=== PATIENT | male | born 1970 | race Caucasian/White ===

== ENCOUNTER 2020-02-13 08:48 | Day surgery (SDC) | payer BC, SELFPAY ==
[2020-02-13] VITALS (7 sets, daily range): BP systolic 95–107; BP diastolic 62–70; PULSE 57–68; RESP 16; TEMP 36.2–36.6; O2SAT 97–100; BMI 21.8
--- NOTE | 2020-02-13 08:56 | PCM.HP.BLA ---
Problem List (1) Temporal arteritis Status: Acute History and Physical Date of Admission: 02/13/20 Intake Visit Reasons: TEMPORAL ARTERY Chief Complaint: discuss temporal artery biopsy Rehabilitation Tech Required: No Is patient in pain?: Yes Allergies No Known Allergies Allergy (Verified 02/11/20 12:48) Medications prednisone 20 mg tablet PO 02/11/20 [History Confirmed 02/11/20] [facility] Medical History (Updated 02/11/20 @ 13:[address] Prasanna Shankar MD) Temporal arteritis (Acute) Anxiety and depression (Acute) Fatigue (Acute) Fever of unknown origin (Acute) Hepatomegaly (Acute) Splenomegaly (Acute) HPI HPI HPI: NAYELY DIAZ, is a 49 M who presents to the office today for a right temporal artery biopsy. The patient has suspected temporal arteritis. He is being referred by Dr Chowdary and a written copy of my surgical consult recommendations will be returned to him. Patient's been suffering from a complexity of issues including weight loss right upper quadrant flank pain fever. Part of his evaluation included a gallbladder ultrasound showing hepatomegaly with a 2.6 mm lesion the right hepatic lobe probably hemangioma contracted gallbladder. Hepatitis B and hepatitis A evaluation was negative. White count normal at 6.9 with a hemo-14.1 medical 41.9 platelet count 261,000. Liver function tests only notable for total bilirubin of 1 alkaline phosphatase of 140 ALT 107 AST of 60. CEA level was 4. It is of note that his C-reactive protein is 227.6. His rheumatoid factor is 13. Sed rate was 82 Patient notes intermittent throbbing severe right slightly greater than left temporal headache. He denies vision changes HPI HPI HPI: NAYELY DIAZ, is a 49 M who presents to the office today for ROS General General: Yes weight change and fatigue; no appetite, colon cancer, breast cancer or weakness HEENT HEENT: No difficulty swallowing, eye injury, eye surgery, swollen glands or hoarseness Endo Endocrine: No thyroid disease, diabetes mellitus, thyroid cancer, Hair loss, heat intolerance or cold intolerance Musc Musculoskeletal: No back problems, arthritis, rheumatoid arthritis, gout or joint pain Cardio Cardiovascular: No murmur, pacemaker, heart disease, atrial fibrillation, high blood pressure, heart attack, heart stent, palpitations, shortness of breat with exertion or chest pain Psych Psychiatric: Yes depression and anxiety; no hearing voices Resp Respiratory: No shortness of breath, No sleep apnea, No cough, No COPD, No asthma, No emphysema, No wheezing Gastro Gastrointestinal: Yes abdominal pain, Yes nausea or vomiting, Yes diarrhea, No constipation, No blood in stool, No acid reflux, No hemorrhoids, No ulcers, No gallbladder problem, No black,tarry stools Hayden Hematologic: No blood thinners, No blood disorders, No bleeding, No anemia, No blood clots Neuro Neurologic: No weakness Exam Const General: cooperative, other (Hoarse voice, evidence of weight loss) Orientation: alert, awake HENMT Other: Diminished pulses bilateral temporal arteries with slight tenderness to palpation bilaterally. No erythema or induration Eyes General: appearance normal, both eyes and all related structures Chest Chest palpation & inspection: normal inspection of the chest Resp Effort & Inspection: normal respiratory effort Auscultation: clear to auscultation bilaterally Cardio Rate: regular rate Rhythm: regular rhythm Heart Sounds: no murmurs Neuro Cognition: normal cognition Extrem General: no calf tenderness Psych Affect: normal affect Assessment & Plan Problems 1. Temporal arteritis M31.6 Plan Patient referred for possible temporal arteritis. He has been started appropriately on steroid treatment. I propose for him a right temporal artery biopsy and with his present I described the technique, benefit, risk and alternatives. Anticipate performing this with monitored anesthesia care and local anesthetic. As noted he is already been started on treatment. We will schedule and expedite his care. I appreciate the opportunity of assisting with surgical management Copy: Dr. Jeremy Shankar M.D., F.A.C.S. Coding Level of Care Code 17576 Diagnoses Temporal arteritis M31.6 I have re-examined the patient. There are no clinical changes since date of exam. Procedure Criteria Procedure Type: Elective COVID Risk Discussion: The surgeon/proceduralist and patient have discussed in detail the risk of exposure to and/or potential harm posed by the COVID-19 virus with having a surgery/procedure at this time versus the risk of delaying the surgery/procedure. It is not possible to know either the risk of delaying the surgery or procedure or chance of getting an infection with perfect accuracy, but a joint decision was made between the patient and the surgeon/proceduralist to proceed at this time with the scheduled surgery/procedure as indicated on the consent form.
[2020-02-13 09:41] LABS: Bedside Glucose 88 mg/dL (70-110)
[2020-02-13] MEDS: Lactated Ringers 1,000 ML 100 ML IV (09:43)
--- NOTE | 2020-02-13 10:48 | DCINST_ITS ---
Discharge Diet: Light diet - advance as tolerated - if you have questions about your diet instructions, please talk to you doctor. Discharge Activity: May Not Drive - for 1 day May shower in (days): 1 Lifting Restrictions: 10 pounds Call your doctor if your incision/area has: Continuous Slow Oozing, Sudden Increased Bleeding, Increased Pain/ Swelling, Increased Redness, Foul Smelling Discharge Call your doctor if you observe: Fever of 101 or Higher Suture Line Care: Avoid Pulling/Pushing, Avoid Pinching/Bending Additional Dressing/Incision Instructions:: You may remove your dressing tomorrow and you may shower tomorrow. The surgical glue will wear off in 1 to 2 weeks. Allergies/Adverse Reactions: Allergies Penicillins Allergy (Verified 02/13/20 09:16) Swelling Sulfa (Sulfonamide Antibiotics) Allergy (Verified 02/13/20 09:16) Swelling Medications to take at Discharge prednisone 20 mg tablet 60 mg PO DAILY 02/11/20 Albuterol IH (ProAir) [Proair Hfa] 1 - 2 puff INHALATION Q6H PRN PRN 02/12/20 Ibuprofen [Advil Liqui-Gels] 200 mg PO PRN PRN 02/12/20 Metformin HCl [Glucophage] 500 mg PO QHS 02/12/20 Ondansetron HCl [Zofran] 4 mg PO PRN PRN 02/12/20 Primary Care Physician: Jeremy Chowdary MD [Primary Care Provider] - Test Results: Test results from this visit will be discussed in further detail at your follow- up appointment, if applicable. Please Follow Up With: Prasanna Shankar MD - [phone] When: Call for any concerns
--- NOTE | 2020-02-13 11:00 | TEM_PTH ---
PATIENT: NAYELY DIAZ Jr. LOC: [facility] U#:[id number] AGE/SX: 49/M ROOM: RE02/13/[address]: Dr. Prasanna Shankar MD : 1970 BED: DIS: 02/13/2020 SPEC #: [id number] RECD: 02/13/20 12:12 STATUS: ISELA HEBERT #: [id number] PANTERA: 02/13/20 11:[address]: Prasanna Shankar DEPT: SURGICAL PATHOLOGY RECD BY: Rehan Borjas ENTERED: 02/13/20 13:01 SP TYPE: TEMPORAL OTHR DR: Dr. Jeremy Chowdary MD Tissues: Temporal region Procedures: Elastin Stain (control) Special Stain Group II Surgery Specimen Level IV HEADER OPERATION: Temporal artery biopsy PRE-OP DIAGNOSIS: Temporal arteritis TISSUE SUBMITTED: Temporal artery biopsy MICROSCOPIC DIAGNOSIS Temporal artery, biopsy: Moderate internal fibroplasia. Focal disruption of internal elastic lamina. No evidence of arteritis. See comment. AM:bowen 02/17/20 COMMENT Elastin stain with matched control supports the above diagnosis. MICROSCOPIC DESCRIPTION Slides are reviewed. GROSS DESCRIPTION Received in fixative is one container labeled with the patient's name and designated temporal artery biopsy right. The specimen consists of a tubular segment of sanford-pink soft tissue measuring 2.5 cm in length and 0.2 cm in diameter. Two eduar are noted. The entire specimen is submitted in one cassette. The specimen will be sectioned at the time of embedding. / SJ:bowen 02/13/20 TC:5 CPT: 10358, 03505
[2020-02-13] MEDS: Bupivacaine Mpf 0.5% 30 ML VIAL (11:01)
--- NOTE | 2020-02-13 11:34 | PCM.OPRPT ---
Problem List (1) Temporal arteritis Status: Acute Report of Operation Date of Procedure: 02/13/20 Pre-Operative Diagnosis: Suspected right temporal arteritis Post-Operative Diagnosis: Pathology pending Surgery/Procedure Performed:: Right temporal artery biopsy Description of Surgical Findings:: Timeout and informed consent was obtained. 57-year-old gentleman was taken the operating placed on the table underwent monitored anesthesia care. Clean procedure. The right preauricular area was sterilely prepped and draped. 1% lidocaine mixed 50-50 with 0.5% Marcaine was used as a local anesthetic. Throughout the procedure a total of 12 cc was used. Local was instilled. A longitudinal vertical incision was created. Sharp and blunt dissection was used to identify the temporal artery. It otherwise appeared clinically normal. It was dissected free proximally and distally to approximately 4 cm was achieved. Side branches were secured with hemoclips. At the completion then hemostats were placed proximally and distally. Segment was excised and immediately transferred to formalin. The arterial ends were secured with 4-0 Vicryl ligatures. Nice hemostasis was intact. The procedure went smoothly without apparent complication. The wound was then closed with a running septic or 5-0 Vicryl. Dermabond was applied followed by Telfa and tape dressings. Sponge and instrument and needle counts were reported to the surgeon to be correct. Blood loss minimal. Specimens right temporal artery. Drains none. Blood loss minimal. Prasanna Shankar M.D., F.A.C.S. Type of Anesthesia:: Local MAC Anesthesiologist: Keon Mas
== END 2020-02-13 12:58 | disposition home or self-care (01) ==
LOC: SDC 08:49 → AC 08:51
PROVIDERS: PCP Family Medicine; Referring Provider Surgery; Visit Provider Surgery
PROC: (CPT 37609; principal; 2020-02-13 10:45)
DX: I77.89 Other specified disorders of arteries and arterioles (principal); E09.9 Drug or chemical induced diabetes mellitus without complications; T38.0X5A Adverse effect of glucocorticoids and synthetic analogues, initial encounter; J44.9 Chronic obstructive pulmonary disease, unspecified; G25.81 Restless legs syndrome; F32.9 Major depressive disorder, single episode, unspecified; F41.9 Anxiety disorder, unspecified; F17.200 Nicotine dependence, unspecified, uncomplicated; Z79.84 Long term (current) use of oral hypoglycemic drugs
CPT/HCPCS: 00352; 37609; 82962; 88305; 88313; J7120

== ENCOUNTER → 2020-03-01 16:37 | Outpatient (CLI) | payer BC, SELFPAY ==
[2020-02-13 09:23] VITALS: BMI 21.8
[2020-03-01 18:12] LABS: Erythrocyte Sedimentation Rate 19 mm/hr (0-20)
[2020-03-01 18:16] LABS: Prothrombin Time (Protime)PT. 12.6 SECONDS (11.7-14.9)
[2020-03-01 18:18] LABS: Partial Thromboplast Time 50.9 Seconds (24.1-36.2)
[2020-03-01 18:52] LABS: AST(SGOT) 23 U/L (15-37); Alanine Aminotransfer ALT/SGPT 37 U/L (16-61); Albumin, Serum 3.1 g/dL (3.2-5.0); Alkaline Phosphatase 88 U/L (45-117); Bilirubin, Direct 0.14 mg/dL (0.00-0.30); GGTP 58 U/L (15-85); Globulin 4.2 g/dL (2.2-4.2); Protein, Total 7.3 g/dL (6.4-8.2)
== END ==
PROVIDERS: PCP Family Medicine; Referring Provider Internal Medicine Gastroenterology; Visit Provider Internal Medicine Gastroenterology
DX: K75.9 Inflammatory liver disease, unspecified (principal)
CPT/HCPCS: 36415; 80076; 82977; 85610; 85652; 85730; 86140

== ENCOUNTER 2023-04-23 11:33 | Emergency (ER) | payer BC, SELFPAY ==
[2023-04-23 11:35] VITALS: BP 147/82; PULSE 77; RESP 18; TEMP 35.9; O2SAT 100; BMI 25.0
--- NOTE | 2023-04-23 13:03 | EX.ED.DYSGE1 ---
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 Over the last 1 to 2 weeks he has had shooting pain down the left arm and occasional numbness and tingling. He states it is in the entire arm and sometimes goes into all the fingers. It feels difficult to button or zip clothing with the left hand. He was seen at [facility] 3 days ago. He states at that time he also had some left sided chest pain so they did a cardiac work-up which was negative. He had a CT scan which was normal. He is not sure what area of the body they scanned but thinks it was his chest. He was prescribed steroids and Flexeril and was told to follow-up with primary care for possible MRI. Patient states his PCP moved too far away and now he cannot get in anywhere for several months. He is here requesting an MRI. [facility] <BIPIN Casper - Last Filed: 04/23/23 14:02> [facility] Medical History (Updated 04/23/23 @ 13:01 by BIPIN Casper) Anxiety and depression Fatigue Fever of unknown origin Hepatomegaly Splenomegaly Temporal arteritis Home Medications prednisone 20 mg tablet 60 mg PO DAILY 02/11/20 [History Last Taken Unknown] albuterol sulfate 90 mcg/actuation aerosol inhaler 1 - 2 puff inhalation Q6H PRN PRN Sob &/Or Wheezing 02/12/20 [History Last Taken Unknown] ibuprofen 200 mg capsule 200 mg PO PRN PRN Pain Or Fever 02/12/20 [History Last Taken Unknown] metformin 500 mg tablet 500 mg PO QHS 02/12/20 [History Last Taken Unknown] ondansetron HCl 4 mg tablet 4 mg PO PRN PRN Nausea 02/12/20 [History Last Taken Unknown] hydrocodone-acetaminophen 5-325mg 5mg-325mg 1 tab PO Q6H PRN pain 3 days #12 tabs 04/23/23 [Rx Last Taken Unknown] Allergy/AdvReac Type Severity Reaction Status Date / Time Penicillins Allergy Swelling Verified 04/23/23 11:34 Sulfa (Sulfonamide Allergy Swelling Verified 04/23/23 11:34 Antibiotics) Social History (Updated 02/11/20 @ 13:[address] Prasanna Shankar MD) Smoking Status: Former smoker ROS <BIPIN Casper - Last Filed: 04/23/23 14:02> ROS ED ROS Narrative Constitutional: Negative for fever, chills, malaise. CVS: Negative for palpitations, chest pain, syncope. Respiratory: Negative for shortness of breath. GI: Negative for abdominal pain, nausea, vomiting. Neuro: Negative for motor/sensory dysfunction. Skin: Negative for rash, abscess, or wound. Musc: Negative for joint pain, swelling, trauma. EXAM <BIPIN Casper - Last Filed: 04/23/23 14:02> Physical Exam Narrative Exam Narrative: CONST: Patient sitting in no acute distress. EYES: Normal inspection. NECK: Normal inspection. RESP: No respiratory distress, CTAB. CVS: Regular rate and rhythm, no murmur, no gallop. SKIN: Color normal, no rash, warm, dry, intact. EXTREMITIES: Normal appearance of upper and lower extremities. 5/5 strength in bilateral shoulder abduction, elbow and wrist flexion/extension, and industrial property appraiser strength. Normal motor and sensory function median radial ulnar distributions, 2+ radial pulses. 2+ biceps and brachioradialis reflexes. Compartments soft, full ROM of all joints. NEURO: Oriented x4. PSYCH: Normal affect. Const Vital Signs: 04/23/23 11:35 04/23/23 12:59 Temperature 96.7 F L Temperature Source Temporal Pulse Rate 77 Respiratory Rate 18 Respiratory Effort Normal Non-Labored Respiratory Pattern Normal Blood Pressure 147/82 H Blood Pressure Mean 103 Pulse Ox 100 Oxygen Delivery Method Room Air <Dr. Miguel A Adam MD - Last Filed: 04/23/23 13:59> Physical Exam Const Vital Signs: 04/23/23 11:35 04/23/23 12:59 Temperature 96.7 F L Temperature Source Temporal Pulse Rate 77 Respiratory Rate 18 Respiratory Effort Normal Non-Labored Respiratory Pattern Normal Blood Pressure 147/82 H Blood Pressure Mean 103 Pulse Ox 100 Oxygen Delivery Method Room Air MDM <BIPIN Casper - Last Filed: 04/23/23 14:02> MDM MDM Narrative Medical decision making narrative: History gathered from: Patient and significant other Patient has left upper back pain that occasionally shoots in the left arm with tingling. Its not in a dermatomal distribution. No history of trauma. He has normal cardiopulmonary exam. He has full range of motion of all joints and normal MSPs and reflexes. Although he may have underlying cervical radiculopathy since his exam is normal he does not require emergent MRI. He is already on prednisone and Flexeril from another facility. I prescribed short course of [place] and provided a PCP referral where he can discuss further evaluation and getting an outpatient MRI. He was discharged in stable condition. I have personally performed a face to face assessment of the patient and have reviewed the FERMIN Note. I performed a substantive portion of the visit including all aspects of the following. My gonzalez findings include: History is [52-year-old male with lower neck and left posterior shoulder pain radiating down his left arm. At times having tingling. No weakness. He was seen in another emergency department had a work-up done which was unremarkable. He is currently on steroids. He denies any neck injury or prior neck surgery.] Exam is [well-appearing 52-year-old male. Vital signs stable afebrile. HEENT exam normal. Neck unremarkable. Normal flexion extension. No rotation. Complains of pain at the base of his neck. Left posterior trapezius has mild tenderness. Both upper extremities are neurovascular intact with normal 5-5 industrial property appraiser strength. Normal range of motion. Normal sensation. He has had prior carpal tunnel surgery in his left wrist. Lungs clear. Heart regular rhythm no murmur. Chest wall nontender. Abdomen soft nontender. Both lower extremities have normal range of motion. Normal motor strength and sensation. Neurologic exam normal.] Medical Decision Making [patient be discharged home with pain medication. Follow-up with local primary care physician. Outpatient MRI.] Other additions or changes: [None] <Dr. Miguel A Adam MD - Last Filed: 04/23/23 13:59> [facility] Narrative Medical decision making narrative: History gathered from: Patient and significant other Patient has left upper back pain that occasionally shoots in the left arm with tingling. Its not in a dermatomal distribution. No history of trauma. He has normal cardiopulmonary exam. He has full range of motion of all joints and normal MSPs and reflexes. Although he may have underlying cervical radiculopathy since his exam is normal he does not require emergent MRI. He is already on prednisone and Flexeril from another facility. I recommended Tylenol or Motrin and provided a PCP referral where he can discuss further evaluation. He was discharged in stable condition. I have personally performed a face to face assessment of the patient and have reviewed the FERMIN Note. I performed a substantive portion of the visit including all aspects of the following. My gonzalez findings include: History is [52-year-old male with lower neck and left posterior shoulder pain radiating down his left arm. At times having tingling. No weakness. He was seen in another emergency department had a work-up done which was unremarkable. He is currently on steroids. He denies any neck injury or prior neck surgery.] Exam is [well-appearing 52-year-old male. Vital signs stable afebrile. HEENT exam normal. Neck unremarkable. Normal flexion extension. No rotation. Complains of pain at the base of his neck. Left posterior trapezius has mild tenderness. Both upper extremities are neurovascular intact with normal 5-5 industrial property appraiser strength. Normal range of motion. Normal sensation. He has had prior carpal tunnel surgery in his left wrist. Lungs clear. Heart regular rhythm no murmur. Chest wall nontender. Abdomen soft nontender. Both lower extremities have normal range of motion. Normal motor strength and sensation. Neurologic exam normal.] Medical Decision Making [patient be discharged home with pain medication. Follow-up with local primary care physician. Outpatient MRI.] Other additions or changes: [None] Discharge Plan Triage Chief Complaint: Back Other Complaint: Other, Pain/Inj ED Midlevel Provider: Elva Jacobs ED Provider: Miguel A Adam Dx/Rx/DC Orders Clinical Impression: Arm pain, left Instructions: ED Radiculopathy, Cervical Prescriptions: New hydrocodone-acetaminophen 5-325 mg tablet 1 tab PO Q6H PRN (Reason: pain) 3 Days Qty: 12 0RF No Action prednisone 20 mg tablet 60 mg PO DAILY metformin 500 MG tablet 500 mg PO QHS ibuprofen 200 MG capsule 200 mg PO PRN PRN (Reason: Pain Or Fever) ondansetron HCl 4 MG tablet 4 mg PO PRN PRN (Reason: Nausea) albuterol sulfate 1 PUFF inhaler 1 - 2 puff inhalation Q6H PRN PRN (Reason: Sob &/Or Wheezing) Primary Care Provider: Allison Physician,No Primary Referrals: Tony Schmid MD [Med Staff - [facility]] - Jeremy Chowdary MD [Non-Staff] - Activity Restrictions/Additional Instructions: Please call to get a primary care doctor. They can help you get physical therapy or further testing if needed. In the meantime take Tylenol or ibuprofen. Disposition Disposition: Home, Self Care
[2023-04-23] MEDS: Ketorolac 30 MG/ML Syringe IM (13:19)
[2023-04-23 14:00] VITALS: RESP 18
== END 2023-04-23 14:17 | disposition home or self-care (01) ==
LOC: ED 13:15
PROVIDERS: Emergency Provider Emergency Medicine; Visit Provider Emergency Medicine
DX: M79.602 Pain in left arm (principal); Z87.891 Personal history of nicotine dependence
CPT/HCPCS: 96372; 99283

== ENCOUNTER → 2023-05-01 | Outpatient (CLI) | payer BC, SELFPAY ==
--- NOTE | 2023-05-01 11:38 | RAD_ITS ---
STUDY: X-RAY - CERVICAL SPINE REASON FOR EXAM: Male, 52 years old. Pain. TECHNIQUE: 3 view(s) of the cervical spine were obtained on 4 images. COMPARISON: None FINDINGS: Normal anterior atlantoaxial articulation. Normal odontoid process. Normal cervical lordosis. Mild diffuse uncovertebral and facet sclerosis. Limbus vertebrae at C4, C5 and C6. Mild intervertebral disc space narrowing at C6-7 with small osteophytes. . Normal soft tissues. RAD/Cerv Spine 2 or 3 Views IMPRESSION: Mild diffuse cervical spondylosis. Electronically Signed: Festus Khalil MD at 15:10 EST ,
== END | disposition home or self-care (01) ==
PROVIDERS: PCP Family Medicine; Referring Provider Family Medicine; Visit Provider Family Medicine
DX: M54.2 Cervicalgia (principal)
CPT/HCPCS: 72040

== ENCOUNTER → 2023-05-23 | Outpatient (CLI) | payer BC, SELFPAY ==
--- NOTE | 2023-05-23 06:32 | MRI_ITS ---
STUDY: MRI CERVICAL SPINE WITHOUT CONTRAST REASON FOR EXAM: Male, 52 years old. Left sided cervical radiculopathy TECHNIQUE: Standardized fat and water weighted pulse sequences were obtained in the sagittal and axial planes. COMPARISON: Cervical spine radiographs 05/01/2023. FINDINGS: Normal foramen magnum and brainstem-cervical cord junction. Normal craniovertebral junction. Normal anterior atlantoaxial articulation. Normal odontoid process. Straightening of the C-spine curvature. Normal vertebral bodies and posterior osseous elements. C2-3: Normal endplates. Normal disc height, signal and morphology. Normal central canal and intervertebral neural foramina. C3-4: Normal endplates. Normal disc height, signal and morphology. Normal central canal and intervertebral neural foramina. C4-5: Normal endplates. Normal disc height, signal and morphology. Normal central canal and intervertebral neural foramina. C5-6: Normal endplates. Normal disc height. Mild ventral extradural defect due to posterior bulging annulus. Normal central canal and right intervertebral neural foramen. Mild stenosis of the left intervertebral neural foramen. C6-7: Normal endplates. Normal disc height.. Prominent left ventral extradural defect is posterior disc protrusion causing displacement of the left C7 nerve root sleeve and pronounced stenosis of the left intervertebral neural foramen. Normal central canal and right intervertebral neural foramen. C7-T1: Normal endplates. Normal disc height, signal and morphology. Normal central canal and intervertebral neural foramina. T1-T2 and T2-T3: Normal endplates. Normal disc height, signal and morphology. Normal central canal and intervertebral neural foramina. Normal cervical cord. Normal upper thoracic spinal cord. Normal included portions of brainstem and cerebellum. Normal visualized soft tissue structures. MRI/Spine Cervical (Routine) IMPRESSION: Prominent left C6-C7 posterior disc protrusion causing displacement of the left C7 nerve root sleeve and pronounced stenosis of the left C6-C7 intervertebral neural foramen. Electronically Signed: Chriss Franco MD at 16:18 EST ,
== END | disposition home or self-care (01) ==
LOC: MRI 05:46
PROVIDERS: PCP Family Medicine; Referring Provider Family Medicine; Visit Provider Family Medicine
DX: M54.12 Radiculopathy, cervical region (principal)
CPT/HCPCS: 72141